=== PATIENT | female | born 1995 | race Caucasian/White ===

== ENCOUNTER 2019-11-24 14:14 | Outpatient (CLI) | payer BC, SELFPAY ==
--- NOTE | ~2019-11-24 | XR_ITS ---
EXAMINATION: XR elbow RT min 3V DATE: 11/24/2019 14:37 INDICATION: Right elbow pain post injury one month prior TECHNIQUE: Anteroposterior, two oblique and lateral views of the right elbow were obtained. COMPARISON: None. FINDINGS: Alignment is normal. No fracture or joint effusion. Joint spaces are normal. There is bulging of the biceps muscle which tapers abruptly at a greater distance than would be expected from the radial tube rosity raising suspicion for distal biceps tendon tear. IMPRESSION: 1. Soft tissue shadows suggest retraction of the biceps muscle belly due to distal biceps brachii ten don tear. Correlate clinically and would consider MRI of the right elbow for further evaluation. 2. No right elbow joint effusion or osseous abnormality. Reviewed, dictated and finalized at location A. IMPRESSION: 1. Soft tissue shadows suggest retraction of the biceps muscle belly due to dis kenny biceps brachii tendon tear. Correlate clinically and would consider MRI of the right elbow for further evaluation. 2. No right elbow joint effusion or osseous abnormality.
== END 2019-11-24 14:15 | disposition home or self-care (01) ==
PROVIDERS: PCP Internal Medicine; Visit Provider Internal Medicine
DX: M25.521 Pain in right elbow (principal); S59.901A Unspecified injury of right elbow, initial encounter
CPT/HCPCS: 73080